=== PATIENT | male | born 1980 | race Two or more races ===

== ENCOUNTER 2018-12-25 04:34 | Emergency (ER) | payer MEDICAID ==
[~2018-12-25] VITALS: Ht 167.6 cm; Wt 63.0 kg
[~2018-12-25 04:34] MED LIST: CARI350T PO; IBUP-1984 PO; IBUP-1986 PO; ZOF4T PO
[2018-12-25 04:38] VITALS: BP 122/77
[2018-12-25] MEDS ORDERED: AMOX500C2 PO (05:06)
[2018-12-25] MEDS ORDERED: ketorolac trometh inj. 60 MG/2 ML VIAL IM ONE (05:10)
== END 2018-12-25 05:18 | disposition left against medical advice (07) ==
LOC: ER 04:35
DX: K08.89 Other specified disorders of teeth and supporting structures (principal); K00.7 Teething syndrome; J45.909 Unspecified asthma, uncomplicated; F41.9 Anxiety disorder, unspecified; F12.90 Cannabis use, unspecified, uncomplicated; Z98.890 Other specified postprocedural states; Z56.0 Unemployment, unspecified; Z88.6 Allergy status to analgesic agent; Z79.899 Other long term (current) drug therapy
CPT/HCPCS: 99283